=== PATIENT | female | born 1975 | race Caucasian/White ===

== ENCOUNTER 2023-09-28 16:15 | Inpatient (IN) | payer OTHER, SELFPAY ==
[2023-09-28] VITALS (24 sets, daily range): BP systolic 124–153; BP diastolic 75–97; PULSE 68–100; RESP 14–31; TEMP 36.4; O2SAT 88–100; BMI 19.3
--- NOTE | ~2023-09-28 | XR_ITS ---
XR chest 1V portable Ordering provider: Jc Thomas MD History: 47 years Female with . cough . Comparison: None. FINDINGS: MEDIASTINUM: The cardiac silhouette is not enlarged. LUNGS: No pneumothorax. Opacification the left lung base suggestive of atelectasis versus pneumonia w ith pleural effusion. OTHER: No free air under the diaphragm. Catheters and postoperative changes are seen in the upper abdomen IMPRESSION: Left basal pneumonia with pleural effusion. Follow-up to resolution is advised. Reviewed, dictated and finalized at location A.
--- NOTE | ~2023-09-28 | XR_ITS ---
XR chest 2V DATE: 09/30/2023 09:08 INDICATION: Pleural effusion TECHNIQUE: 2 views, PA and lateral projections COMPARISON: 09/28/2023 CT chest 09/28/2023 portable AP chest FINDINGS: There is a left lung atelectasis, with associated shift of the heart and mediastinum leftwa rd. There is probable left pleural effusion. There is compensatory hyperaeration of the right lung. The right lung appears clear. Minimal right pl eural effusion is suggested. Postoperative changes of the abdomen. Catheters noted overlying the right abdomen. IMPRESSION: Left lung volume loss, leftward cardiomediastinal shift, left lung infiltrate, pleural ef fusion Reviewed, dictated and finalized at location A. IMPRESSION: Left lung volume loss, leftward cardiomediastinal shift, left lung infiltrate, pleural effusion
--- NOTE | ~2023-09-28 | CT_ITS ---
CT diagnostic chest wo con Ordering provider: Jc Thomas MD History: 47 years Female with . left pleural effusion . Comparison: None. Technique: CT chest without IV contrast. Radiation reduction technique utilized. DLP is 120.22 mGy-cm. FINDINGS: VISUALIZED THORACIC INLET: Normal. MEDIASTINUM: Aorta/coronary arteries: Mild atheromatous disease. Heart/other: The heart is not enlarged. Rmfl-zi-eaqaetyb pericardial effusion. Lymph nodes: No mediastinal or hilar adenopathy. LUNGS: No pulmonary nodules or masses. Moderate left pleural effusion with adjacent atelectasis. Mini mal right pleural effusion. Atelectasis versus pneumonia seen in the left lingula. No pneumothorax. G roundglass appearance seen in the right middle and upper lobe suggestive of pneumonia..2. Possibilit y of nodule in the area of the left oblique fissure is not excluded. Follow-up to resolution is advis ed. Groundglass appearing nodule is seen in the right lower lobe medially which may be infectious but follow-up advised. VISUALIZED UPPER ABDOMEN: Right nephrostomy. Postoperative changes in the left renal area. Otherwise, the visualized upper abdomen is normal. MUSCULOSKELETAL: Soft tissues: The superficial soft tissues are normal. Bones: Age appropriate degenerative changes of the spine. Healing rib fracture is seen posteriorly in the left 6th , seventh and eighth rib IMPRESSION: 1. Large left pleural effusion with atelectasis versus pneumonia in the lingula. 2. Small right pleural effusion with groundglass appearance seen in the right upper and middle lobe which may indicate early pneumonia. Possibility of nodule in the area of the left oblique fissure is not excluded. Follow-up to resolution is advised. 3. Sglc-ik-atlvhqak pericardial effusion. 4. Healing fractures in the left hemithorax. 5. Small groundglass appearing nodule is seen in the right lower lobe medially which may be infectio us but follow-up advised. Reviewed, dictated and finalized at location A. IMPRESSION: 1. Large left pleural effusion with atelectasis versus pneumonia in the lingul a. 2. Small right pleural effusion with groundglass appearance seen in the right upper and middle lobe which may indicate early pneumonia. Possibility of nodule in the area of the left oblique fissure is not excluded. Follow-up to resoluti on is advised. 3. Etkl-ji-kviombzf pericardial effusion. 4. Healing fractures in the left hemithorax. 5. Small groundglass appearing nodule is seen in the right lower lobe medially which may be infectious but follow-up advised.
--- NOTE | 2023-09-28 16:54 | ECG_ITS ---
Test Date: 2023-09-28 17:28:09 Measurements Intervals [place] Rate: 93 P: 20 VT: 162 QRS: 8 QRSD: 82 T: 50 QT: 391 QTc: 488 Interpretive Statements SINUS RHYTHM LOW QRS VOLTAGE IN LIMB LEADS CANNOT R/O SEPTAL INFARCT, AGE INDETERMINATE CONSIDER INFERIOR INFARCT, AGE INDETERMINATE BORDERLINE ST ABNORMALITY- ANTEROLAT/HIGH LAT LEADS BASELINE ARTIFACT- V4 ABNORMAL ECG No previous ECG available for comparison Electronically Signed On 09-28-2023 20:17:49 CDT by Landon Miller D.O.
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
[2023-09-28 17:50] LABS: Influenza A QL RT-PCR Negative (Negative); Influenza B QL RT-PCR Negative (Negative); RSV RNA, RT-PCR Negative (Negative); SARS-CoV-2 RNA PCR Negative (Negative)
[2023-09-28 18:59] LABS: Basophils Absolute Auto 0.1 K/mm3 (0.0-0.1); Basophils Percent Auto 0.5 % (0.2-1.2); Eosinophils Absolute Auto 0.2 K/mm3 (0-0.3); Hematocrit 26.3 % (37.0-47.0); Hemoglobin 8.5 g/dL (12.0-15.0); Immature Granulocyte Absolute 0.04 K/mm3 (0.00-0.031); Immature Granulocyte Percent A 0.4 % (0-0.5); Lymphocytes Percent Auto 14.2 % (18.3-44.2); Mean Corpuscular HGB Conc 32.3 g/dl (32-36); Mean Corpuscular Hemoglobin 32.8 pg (26-34); Mean Corpuscular Volume 101.5 fl (80-100); Mean Platelet Volume 10.2 fl (7.4-10.4); Monocytes Absolute Auto 0.5 K/mm3 (0.1-0.6); Monocytes Percent Auto 4.7 % (2.6-8.5); Neutrophils Absolute Auto 7.7 K/mm3 (1.3-6.7); Neutrophils Percent Auto 78.2 % (45.5-73.1); Platelet Count Result 231 k/mm3 (150-375); Red Blood Count 2.59 M/mm3 (4.2-5.4); Red Cell Distribution Width 15.3 % (11.5-14.5); White Blood Count 9.9 K/mm3 (4.5-10.0)
[2023-09-28 19:14] LABS: Alanine Aminotransferase 7 U/L (6-35); Albumin Level 4.5 g/dL (3.5-5.1); Alkaline Phosphatase 120 U/L (38-126); Anion Gap 27 mmol/L (4-12); Aspartate Amino Transferase 9 U/L (14-36); Bilirubin,Total 0.6 mg/dL (0.2-1.3); Calcium 6.2 mg/dL (8.4-10.2); Carbon Dioxide 10 mmol/L (22-30); Chloride 102 mmol/L (98-107); Glucose 73 mg/dL (65-110); Magnesium 1.4 mg/dL (1.6-2.3); Potassium 6.6 mmol/L (3.4-5.0); Sodium 139 mmol/L (137-145)
[2023-09-28 19:19] LABS: Estimated CRCL calculation 3 ml/min; Estimated Glomerular Filt Rate 2
[2023-09-28 19:24] LABS: Blood Urea Nitrogen 129 mg/dL (7-17)
[2023-09-28] MEDS: ALBUTEROL SULFATE NEB 2.5 MG/3 ML INH INHALATION (19:30)
--- NOTE | 2023-09-28 19:31 | PC.NURSE ---
amy martin for 2mg morphine x 1 dose.
[2023-09-28] MEDS: DEXTROSE 50% 25 GM/50 ML SYRINGE IV PUSH (19:43)
[2023-09-28] MEDS: MORPHINE SULFATE (*CRX) 2 MG/ML INJ IV PUSH (19:43)
[2023-09-28] MEDS: SODIUM BICARBONATE 8.4% 50 MEQ/50 ML SYRINGE IV PUSH (19:43)
[2023-09-28] MEDS: INSULIN HUMAN REGULAR (*BKC) 100 UNITS/ML IV PUSH (19:44)
[2023-09-28 20:16] LABS: Appearance Urine Turbid (Clear); Bacteria Urine 2+ /hpf; Bilirubin Urine Negative (Negative); Blood Urine 1+ (Negative); Color Urine Yellow (Yellow); Glucose Urine UA Trace mg/dL (Negative); Ketones Urine Negative (Negative); Leukocyte Esterase Ur 3+ LEU/UL (Negative); Nitrate Urine Negative (Negative); Protein Urine 3+ mg/dL (Negative); Specific Grav Ur 1.011 (1.001-1.035); Squamous Epithelial Cell Urine Many /hpf (Few); Urobilinogen Urine 0.2 mg/dL (<2.0); WBC Urine >100 /hpf (0-3); pH Urine 7.5 (5.0-9.0)
[2023-09-28 20:19] LABS: Add Urine Microscopic? YES
--- NOTE | 2023-09-28 20:21 | PC.NURSE ---
amanuel significant other updated.
[2023-09-28] MEDS: SODIUM ZIRCONIUM CYCLOSILICATE 10 GM POWD.PACK PO (21:34)
--- NOTE | 2023-09-28 22:04 | ADMGEN ---
This patient, Lorena Balderas, was admitted to 3 [facility] Surg Room 301-01. Patient/family oriented to hospital policies and general routines including ID bracelet, bed and alarms, visiting hours, pain management, procedures, bathroom and other care routines, personal items, smoking policy, room service/diet, and visiting hours. Information on how to activate the Rapid Response Team has been discussed. Patient/Family are encouraged to report perceived risks to care and to ask questions if they do not understand what they are told or what they should do.
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
[2023-09-29] VITALS (26 sets, daily range): BP systolic 97–160; BP diastolic 47–91; PULSE 74–110; RESP 14–18; TEMP 36.1–37.6; O2SAT 92–97
[2023-09-29 00:50] LABS: Anion Gap 26 mmol/L (4-12); Blood Urea Nitrogen 133 mg/dL (7-17); Calcium 5.7 mg/dL (8.4-10.2); Carbon Dioxide 13 mmol/L (22-30); Chloride 101 mmol/L (98-107); Estimated CRCL calculation 3 ml/min; Estimated Glomerular Filt Rate 2; Glucose 100 mg/dL (65-110); Potassium 5.2 mmol/L (3.4-5.0); Sodium 140 mmol/L (137-145)
[2023-09-29 01:15] LABS: Hepatitis B Surface Antigen Negative (Negative)
[2023-09-29 01:32] LABS: Hepatitis B Surface Anti Res Negative
[2023-09-29] MEDS: MORPHINE SULFATE (*CRX) 2 MG/ML INJ IV PUSH ×2 (01:33→09:12)
[2023-09-29] MEDS: CALCIUM GLUCONATE 1,000 MG/10 ML VIAL 1000 MG IV PUSH (01:33)
[2023-09-29] MEDS: HYDROcodone/acetaminophen (*CRX) 5-325 MG TABLET 1 TAB PO ×3 (05:26→20:02)
[2023-09-29] MEDS: NICOTINE (*PBKC) 14 MG PATCH 1 PATCH TRANSDERM (05:27)
--- NOTE | 2023-09-29 05:43 | PCRCNOTE ---
Window of time for administration has passed. See next scheduled administration.
[2023-09-29 07:09] LABS: Hematocrit 23.1 % (37.0-47.0); Hemoglobin 7.5 g/dL (12.0-15.0); Mean Corpuscular HGB Conc 32.5 g/dl (32-36); Mean Corpuscular Volume 101.8 fl (80-100); Platelet Count Result 202 k/mm3 (150-375); Red Blood Count 2.27 M/mm3 (4.2-5.4); Red Cell Distribution Width 15.2 % (11.5-14.5); White Blood Count 8.1 K/mm3 (4.5-10.0)
[2023-09-29 07:22] LABS: INR 1.2
[2023-09-29 07:32] LABS: Amylase 109 U/L (30-110); Cholesterol 143 mg/dL (0-200); Triglycerides 114 mg/dL (<150)
[2023-09-29 07:35] LABS: Albumin Level 4.1 g/dL (3.5-5.1); Anion Gap 25 mmol/L (4-12); Calcium 6.3 mg/dL (8.4-10.2); Carbon Dioxide 13 mmol/L (22-30); Chloride 99 mmol/L (98-107); Glucose 70 mg/dL (65-110); Phosphorus 12.6 mg/dL (2.5-4.5); Potassium 5.8 mmol/L (3.4-5.0); Sodium 137 mmol/L (137-145)
[2023-09-29 07:42] LABS: Estimated CRCL calculation 3 ml/min; Estimated Glomerular Filt Rate 2
[2023-09-29 07:44] LABS: Lactate Dehydrogenase 198 U/L (120-246)
[2023-09-29 08:23] LABS: Blood Urea Nitrogen 131 mg/dL (7-17)
[2023-09-29] MEDS: ALBUTEROL SULFATE NEB 2.5 MG/3 ML INH 5 MG INHALATION (08:23)
[2023-09-29] MEDS: IPRATROPIUM BR 0.02% INH SOLN 0.5 MG/2.5 ML VIAL INHALATION (08:24)
[2023-09-29] MEDS: CALCIUM ACETATE 667 MG TABLET PO ×3 (08:35→16:40)
[2023-09-29] MEDS: HEPARIN SODIUM 5,000 UNITS/ML VIAL 5000 UNITS SUB-Q ×2 (08:35→20:02)
[2023-09-29] MEDS: SODIUM BICARBONATE TAB 650 MG TABLET PO ×2 (08:35→16:40)
--- NOTE | 2023-09-29 09:22 | PM.IMPN ---
Progress Note: A&P Assessment and Plan (1) Noncompliance with renal dialysis: Code(s): Z91.158 - Patient's noncompliance with renal dialysis for other reason Status: Acute Assessment and Plan: Patient has not been to dialysis since September 11 due to transportation issues. She is usually seen Sunday -she has significant electrolyte abnormalities on BMP today -discussed case with Nephrology and we are recommending urgent dialysis this morning and patient is agreeable to go and about [address] Berger has placed verbal orders which includes a calcium bath -she is given 1 g of calcium gluconate early this morning due to a calcium of 5.7 which did improve it a bit -patient still has a low calcium at 6.3-- calcium bath will be added to dialysis per Dr. Berger -continue telemetry -discussed extensively with the patient how important dialysis is. She seems to be agreeable now that she has had her coffee. -anion gap likely due to uremia -on bicarb and phoslo -will give 1g of mag after dialysis (2) Acute hyperkalemia: Code(s): E87.5 - Hyperkalemia Status: Acute Assessment and Plan: Improved from yesterday but still high -pt to undergo dialysis this morning -on [facility] -continue tele (3) Cigarette smoker: Code(s): F17.210 - Nicotine dependence, cigarettes, uncomplicated Status: Acute Assessment and Plan: nicotine patch ordered daily (4) Pleural effusion: Code(s): J90 - Pleural effusion, not elsewhere classified Status: Acute Assessment and Plan: Noted on xray -pt has no symptoms or complaints of cough -Will do dialysis and recheck xray -pt not requring o2, no conversational dyspnea -hold off on thoracentesis as pt was going to leave AMA if we were going to do this (due to needing to be NPO). Will revisit if she continues to have an abnormal xray after dialysis -holding off on abx at this time as fluid overload is suspected to be the major issue. Monitor for leukocytosis and fevers (5) Asthma with COPD with exacerbation: Code(s): J44.1 - Chronic obstructive pulmonary disease with (acute) exacerbation; J45.901 - Unspecified asthma with (acute) exacerbation Status: Acute Assessment and Plan: Minimal wheezing on exam -continue breathing treatments PRN (6) Abnormal urinalysis: Code(s): R82.90 - Unspecified abnormal findings in urine Status: Acute Assessment and Plan: Abnormal UA from nephrostomy tube (has many squames) -unable to determine when this was placed but she has not had it changed since it was placed -awaiting records from OSH for details -no abx started (no fever or WBC), await cx and records (7) Anemia: Code(s): D64.9 - Anemia, unspecified Status: Acute Assessment and Plan: chronic and stable -likely due to ACD, on dialysis -no notable blood loss on hx of exam -monitor with daily labs Time Spent With Patient Time with patient: 25 - 35 minutes Subjective Date/time seen: 09/29/23 09:22 Interval history: Pt is a 47-year-old female here for missed dialysis. Patient was seen today and was very disgruntled. She was placed NPO overnight and she was refusing dialysis until she got a cup of coffee and some crackers. I went up to her room and explained why she was NPO but after listening to her concerns, I thought it was more beneficial for her to get her coffee so she would be agreeable to dialysis. She does not answer many questions on exam as she is very irritated and keeps saying I already told people this and I am over this I am going to leave . I explained to her that her lab values are significantly abnormal and that I am worried about poor outcomes such as coma and and she says she is tired of people telling her she is going to if she does not do dialysis because she knows her own body and she does not feel like she needs i
[2023-09-29] MEDS: EPOETIN ALFA-EPBX 20,000 UNITS/ML VIAL 20000 UNITS IV PUSH (10:19)
[2023-09-29] MEDS: DIPHENHYDRAMINE 1%/ZINC 0.1% CREAM 30 GM TUBE 1 APPLIC TOPICAL (10:46)
[2023-09-29] MEDS: SODIUM ZIRCONIUM CYCLOSILICATE 10 GM POWD.PACK PO ×2 (10:46→15:21)
[2023-09-29] MEDS: diphenhydrAMINE HCl CAP 25 MG CAPSULE PO (12:10)
--- NOTE | 2023-09-29 14:00 | PM.CNNEP ---
Assessment and Plan Assessment and plan (1) End stage kidney disease: Code(s): N18.6 - End stage renal disease Status: Acute Assessment and Plan: The patient has end-stage kidney disease. She gets dialysis 3 times a week. She has a left upper arm fistula. Reason for the end-stage renal disease is most likely obstructive. Patient missed 2 weeks of dialysis. Amazingly her fluid status and electrolytes are not as bad as they could be. She says she still makes some urine which is probably why she was able to stay off for so long. Currently she does have signs of fluid overload and electrolyte abnormalities. I reviewed with her the importance of continuing to go to dialysis 3 times a week. Missing dialysis leads to hospitalization and also mortality. (2) Acute hyperkalemia: Code(s): E87.5 - Hyperkalemia Status: Acute Assessment and Plan: The patient's potassium was high. She was treated with oral and IV medications last night. She will be done on a 2 K bath today. We will check another potassium tomorrow per (3) Noncompliance with renal dialysis: Code(s): Z91.158 - Patient's noncompliance with renal dialysis for other reason Status: Acute Assessment and Plan: Reviewed with the patient the dangers of skipping treatments (4) Cigarette smoker: Code(s): F17.210 - Nicotine dependence, cigarettes, uncomplicated Status: Acute Assessment and Plan: Patient has been advised to quit (5) Pleural effusion: Code(s): J90 - Pleural effusion, not elsewhere classified Status: Acute Assessment and Plan: The patient has a large left pleural effusion and small right pleural effusion. The patient refused thoracentesis. Notably the patient also has some grob-es-xzsqxhwt pericardial effusion, but both related to serositis from missing her dialysis treatments. Will order an echo for Sunday. (6) Asthma with COPD with exacerbation: Code(s): J44.1 - Chronic obstructive pulmonary disease with (acute) exacerbation; J45.901 - Unspecified asthma with (acute) exacerbation Status: Acute Assessment and Plan: Patient has some wheezing. She continues to smoke. (7) Abnormal urinalysis: Code(s): R82.90 - Unspecified abnormal findings in urine Status: Acute Assessment and Plan: The patient has white cells in her urine but it is from a urostomy which can be chronic. She has no fevers and her white count is okay. I do not think we need to treat this. (8) Anemia: Code(s): D64.9 - Anemia, unspecified Status: Acute Assessment and Plan: She is getting Epogen. She obviously has not had any MANUEL's in the last 2 weeks. Will check iron studies as well History of Present Illness Reason for Consult Consult date: 09/29/23 Chief Complaint Chief complaint: Abnormal UA/End Stage Renal Disease/Dialysis Nonco History of Present Illness Narrative: Lorena is a very pleasant 47-year-old lady who has multiple medical problems including end-stage renal disease on dialysis 3 times a week, asthma, cigarette smoker, history of kidney stones, pleural effusion, and small bowel obstruction in the past. The patient says that she started dialysis about 3 years ago. She has been going to [facility]. She thinks that the kidney disease is due to the kidney stones and blockage. She still makes some urine. Two weeks ago the patient stopped going to dialysis completely. At 1st she said it was transportation then she had problems with who could babysit her grand kids but she basically stayed at home for the whole 2 weeks. She did swell up a little bit and she became short of breath as 2 weeks went on. Yesterday she became worried about missing dialysis so she came to the emergency room. In the ER she was evaluated. She was found to be mildly short of breath and her numbers were reflective her her of her having missed some much dial
--- NOTE | 2023-09-29 14:05 | P.PNCROSS_ITS ---
Event Note Event Note Event Note: Patient is on dialysis. She is tolerating it well. Blood pressure is doing pr carola well having removed some fluid. She was seen at 1:15 p.m.
--- NOTE | 2023-09-29 14:05 | PM.EVENT ---
Event Note Event Note Event Note: Patient is on dialysis. She is tolerating it well. Blood pressure is doing pretty well having removed some fluid. She was seen at 1:15 p.m.
[2023-09-29] MEDS: MAGNESIUM SULF 1 GM/D5W 100 ML 1 GM/100 ML BAG IVPB (15:16)
[2023-09-29 15:36] LABS: Iron 79 ug/dL (37-170)
[2023-09-29 15:38] LABS: Anion Gap 16 mmol/L (4-12); Blood Urea Nitrogen 28 mg/dL (7-17); Calcium 9.1 mg/dL (8.4-10.2); Carbon Dioxide 31 mmol/L (22-30); Chloride 95 mmol/L (98-107); Estimated CRCL calculation 9 ml/min; Estimated Glomerular Filt Rate 9; Glucose 83 mg/dL (65-110); Potassium 3.2 mmol/L (3.4-5.0); Sodium 142 mmol/L (137-145)
[2023-09-29 15:46] LABS: Percent Iron Saturation 39 % (20-50)
[2023-09-30] VITALS (9 sets, daily range): BP systolic 125–136; BP diastolic 66–75; PULSE 88–101; RESP 14–20; TEMP 36.4–36.9; O2SAT 90–93
[2023-09-30 07:30] LABS: Hemoglobin 7.6 g/dL (12.0-15.0); Mean Corpuscular HGB Conc 31.7 g/dl (32-36); Mean Corpuscular Hemoglobin 32.5 pg (26-34); Mean Corpuscular Volume 102.6 fl (80-100); Platelet Count Result 186 k/mm3 (150-375); Red Blood Count 2.34 M/mm3 (4.2-5.4); Red Cell Distribution Width 15.2 % (11.5-14.5); White Blood Count 6.3 K/mm3 (4.5-10.0)
[2023-09-30 07:51] LABS: Albumin Level 3.8 g/dL (3.5-5.1); Anion Gap 15 mmol/L (4-12); Blood Urea Nitrogen 38 mg/dL (7-17); Calcium 7.7 mg/dL (8.4-10.2); Carbon Dioxide 29 mmol/L (22-30); Chloride 96 mmol/L (98-107); Estimated CRCL calculation 7 ml/min; Estimated Glomerular Filt Rate 6; Glucose 84 mg/dL (65-110); Phosphorus 7.5 mg/dL (2.5-4.5); Potassium 3.7 mmol/L (3.4-5.0); Sodium 140 mmol/L (137-145)
[2023-09-30] MEDS: CALCIUM ACETATE 667 MG TABLET PO ×3 (08:23→16:09)
[2023-09-30] MEDS: NICOTINE (*PBKC) 14 MG PATCH 1 PATCH TRANSDERM (08:23)
[2023-09-30] MEDS: HEPARIN SODIUM 5,000 UNITS/ML VIAL 5000 UNITS SUB-Q ×2 (08:23→20:16)
[2023-09-30] MEDS: SODIUM BICARBONATE TAB 650 MG TABLET PO ×2 (08:23→16:09)
[2023-09-30] MEDS: HYDROcodone/acetaminophen (*CRX) 5-325 MG TABLET 1 TAB PO ×3 (08:27→22:31)
--- NOTE | 2023-09-30 10:21 | PM.CNNEP ---
History of Present Illness Reason for Consult Consult date: 09/30/23 Chief Complaint Chief complaint: Abnormal UA/End Stage Renal Disease/Dialysis Nonco PMFSH Past Medical History Medical History Asthma Cigarette smoker End-stage renal disease on hemodialysis On hemodialysis since approximately 2020. Patient reports end-stage renal disease due to wear shoe kidney staghorn calculus. [place] Sunday. Sm[place] is Dr. Rangel History of nephrolithiasis Pleural effusion Recurrent Small bowel obstruction Surgical History Surgical History History of intestinal surgery (~2021) Due to bowel obstruction History of tubal ligation Hx of cholecystectomy Status post creation of arteriovenous fistula (~2020) Family History Family History Father , early 70's Cancer Mother Hypertension Hyperlipidemia Social History Social History Social History: Patient reports that she lives with her long-term boyfriend. She has 2 daughters who are in her 20s but she is not in contact with them. She worked in [employer] prior to onset of her renal disease. She has smoked half a pack of cigarettes per day since she was 15 years old. She denies any history of alcohol or drug use. Code status: Full code Surrogate decision maker: Edenilson Thomas (significant other) Smoking packs per day: 0.5 Smoking cigarettes per day: 10.0 Years smoked: 32 Smoking pack-years: 16.00 Smoking status: Current every day smoker Tobacco type: cigarettes Alcohol intake: never Substance use: never Do You Feel Safe in your Home?: Yes Lack of Transportation: No Lack of Food: Never True Current Housing: I Have Housing Concerned About Future Housing: No Difficulty Paying Gas/Electric Bills: No Difficulty Paying for Meds: No Currently Unemployed: No Education: High School Diploma/GED Difficulty w/ Childcare or Family Care: No Spiritual care concerns: No Meds Home Medications and Allergies Home Medications Medication Instructions Recorded Confirmed Type lanthanum 750 mg chewable tablet 1,500 mg PO TID 09/28/23 09/28/23 History Allergies Allergy/AdvReac Type Severity Reaction Status Date / Time aspirin Allergy Swelling Verified 09/29/23 01:01 of Lip/Tongue/Throat ceftriaxone [From Rocephin] Allergy Swelling Verified 09/29/23 01:01 of Lip/Tongue/Throat Vital Signs Vital Signs - 24 hr 09/29/23 12:00 09/29/23 10:30 09/29/23 10:45 Temperature Pulse Rate 82 91 89 Respiratory Rate Blood Pressure 126/59 L 129/80 Pulse Oximetry 09/29/23 11:00 09/29/23 11:15 09/29/23 11:30 Temperature Pulse Rate 96 94 89 Respiratory Rate Blood Pressure 116/81 105/60 115/60 Pulse Oximetry 09/29/23 11:45 09/29/23 12:00 09/29/23 12:15 Temperature Pulse Rate 74 84 79 Respiratory Rate Blood Pressure 125/57 L 104/47 L 99/58 L Pulse Oximetry 09/29/23 12:30 09/29/23 12:45 09/29/23 13:00 Temperature Pulse Rate 97 81 78 Respiratory Rate Blood Pressure 97/64 L 113/58 L 114/61 Pulse Oximetry 09/29/23 13:15 09/29/23 13:30 09/29/23 13:38 Temperature Pulse Rate 79 93 93 Respiratory Rate Blood Pressure 132/56 L 125/61 122/70 Pulse Oximetry 09/29/23 13:48 09/29/23 16:00 09/29/23 21:10 Temperature 98.1 F 97.4 F L Pulse Rate 98 110 H 99 Respiratory Rate 18 14 Blood Pressure 145/77 H 119/83 Pulse Oximetry 92 09/29/23 20:00 09/30/23 05:00 09/30/23 00:00 Temperature 97.6 F Pulse Rate 102 H 99 94 Respiratory Rate 14 Blood Pressure 132/75 Pulse Oximetry 92 09/30/23 04:00 Temperature Pulse Rate 100 Respiratory Rate Blood Pressure Pulse Oximetry Results Lab
--- NOTE | 2023-09-30 10:22 | PM.PNNEP ---
Progress Note: A&P Assessment and Plan (1) End stage kidney disease: Code(s): N18.6 - End stage renal disease Status: Acute Assessment and Plan: The patient has end-stage kidney disease. She gets dialysis 3 times a week. She has a left upper arm fistula. Reason for the end-stage renal disease is most likely obstructive. Patient missed 2 weeks of dialysis. She received dialysis yesterday and did well. Today she feels okay. She has a pericardial effusion so will see what the echo shows tomorrow. (2) Acute hyperkalemia: Code(s): E87.5 - Hyperkalemia Status: Acute Assessment and Plan: Resolved (3) Noncompliance with renal dialysis: Code(s): Z91.158 - Patient's noncompliance with renal dialysis for other reason Status: Acute Assessment and Plan: Reviewed with the patient the dangers of skipping treatments (4) Cigarette smoker: Code(s): F17.210 - Nicotine dependence, cigarettes, uncomplicated Status: Acute Assessment and Plan: Patient has been advised to quit (5) Pleural effusion: Code(s): J90 - Pleural effusion, not elsewhere classified Status: Acute Assessment and Plan: most likely due to lack of dialysis causing serositis. (6) Asthma with COPD with exacerbation: Code(s): J44.1 - Chronic obstructive pulmonary disease with (acute) exacerbation; J45.901 - Unspecified asthma with (acute) exacerbation Status: Acute Assessment and Plan: Patient has some wheezing. She continues to smoke. (7) Abnormal urinalysis: Code(s): R82.90 - Unspecified abnormal findings in urine Status: Acute Assessment and Plan: The patient has white cells in her urine but it is from a urostomy which can be chronic. She has no fevers and her white count is okay. I do not think we need to treat this. (8) Anemia: Code(s): D64.9 - Anemia, unspecified Status: Acute Assessment and Plan: She is getting Epogen. Subjective Date/time seen: 09/30/23 10:22 Interval history: Patient feels better this morning. The rest of the dialysis went okay yesterday. No shortness of breath today. Review of Systems Cardiovascular: Cardiovascular: Reports no additional cardiovascular complaints Respiratory: Respiratory: Reports no additional respiratory complaints Gastrointestinal: Gastrointestinal: Reports no additional gastrointestinal complaints Genitourinary: Genitourinary: Reports no additional female genitourinary complaints Exam Narrative: WDWN in NAD skin no rash head ncat lungs clear cor reg no rub abd BS+ nontender and soft ext no edema. Objective Data Vital Signs Vital Signs: Vital Signs - 24 hr 09/29/23 12:00 09/29/23 10:30 09/29/23 10:45 Temperature Pulse Rate 82 91 89 Respiratory Rate Blood Pressure 126/59 L 129/80 Pulse Oximetry 09/29/23 11:00 09/29/23 11:15 09/29/23 11:30 Temperature Pulse Rate 96 94 89 Respiratory Rate Blood Pressure 116/81 105/60 115/60 Pulse Oximetry 09/29/23 11:45 09/29/23 12:00 09/29/23 12:15 Temperature Pulse Rate 74 84 79 Respiratory Rate Blood Pressure 125/57 L 104/47 L 99/58 L Pulse Oximetry 09/29/23 12:30 09/29/23 12:45 09/29/23 13:00 Temperature Pulse Rate 97 81 78 Respiratory Rate Blood Pressure 97/64 L 113/58 L 114/61 Pulse Oximetry 09/29/23 13:15 09/29/23 13:30 09/29/23 13:38 Temperature Pulse Rate 79 93 93 Respiratory Rate Blood Pressure 132/56 L 125/61 122/70 Pulse Oximetry 09/29/23 13:48 09/29/23 16:00 09/29/23 21:10 Temperature 98.1 F 97.4 F L Pulse Rate 98 110 H 99 Respiratory Rate 18 14 Blood Pressure 145/77 H 119/83 Pulse Oximetry 92 09/29/23 20:00 09/30/23 05:00 09/30/23 00:00 Temperature 97.6 F Pulse Rate 102 H 99 94 Respiratory Rate 14 Blood Pressure 132/75 Pulse Oximetry 92 09/30/23
--- NOTE | 2023-09-30 11:02 | PM.IMPN ---
Progress Note: A&P Assessment and Plan (1) Noncompliance with renal dialysis: Code(s): Z91.158 - Patient's noncompliance with renal dialysis for other reason Status: Acute Assessment and Plan: Patient has not been to dialysis since September 11 due to transportation issues. She is usually seen Sunday -significant electrolyte abnormalities on admission -Nephrology nephrology following and received dialysis yesterday -calcium improving but still low at 7.7 today, she is on calcium acetate 3 times a day with meals and will continue to monitor -continue telemetry -discussed extensively with the patient how important dialysis is -anion gap likely due to uremia -bicarb and phoslo -continue to monitor BMP (2) Acute hyperkalemia: Code(s): E87.5 - Hyperkalemia Status: Resolved Assessment and Plan: Resolved from yesterday and Lokelma discontinued (3) Cigarette smoker: Code(s): F17.210 - Nicotine dependence, cigarettes, uncomplicated Status: Chronic Assessment and Plan: nicotine patch ordered daily (4) Pleural effusion: Code(s): J90 - Pleural effusion, not elsewhere classified Status: Acute Assessment and Plan: Noted on xray -pt has no symptoms or complaints of cough -repeat x-ray shows continued left pleural effusion -pt not requring o2, no conversational dyspnea -consider thoracentesis if becomes symptomatic -holding off on abx at this time as fluid overload is suspected to be the major issue. -Monitor for leukocytosis and fevers (5) Asthma with COPD with exacerbation: Code(s): J44.1 - Chronic obstructive pulmonary disease with (acute) exacerbation; J45.901 - Unspecified asthma with (acute) exacerbation Status: Chronic Assessment and Plan: Minimal wheezing on exam -continue breathing treatments PRN (6) Abnormal urinalysis: Code(s): R82.90 - Unspecified abnormal findings in urine Status: Acute Assessment and Plan: Abnormal UA from nephrostomy tube (has many squames) -unable to determine when this was placed but she has not had it changed since it was placed; will attempt to replace today if we can find appropriate bag -awaiting records from OSH for details -urine culture pending (7) Anemia: Code(s): D64.9 - Anemia, unspecified Status: Chronic Assessment and Plan: chronic and stable -likely due to ACD, on dialysis -no notable blood loss on hx of exam -monitor with daily labs -received Epo with dialysis Subjective Date/time seen: 09/30/23 11:02 Interval history: Patient lying in bed this morning in no distress. She denies any chest pain, SOB, or pain. Her only concern is the neph tube in place on her right side. She believes it is malodorous. She reports it was last changed in [place] when she was visiting family, but she is not the best historian on time frame. Repeat CXR today still shows some left pleural effusion. Nephrology is following for dialysis needs. Review of Systems Review of Systems: All systems reviewed & are unremarkable except as noted in HPI and below Exam Narrative: General: Patient appears older than stated age resting comfortably in bed in no acute distress HEENT: normocephalic, PERRLA, EOMI Neuro: A&O x3. Moves all extremities spontaneously. No focal deficits. CV:RRR. Resp: Lungs clear to auscultation, crackles noted bilaterally in lower lobes. No conversational dyspnea Abd: BS present and active. No pain on plapation. Neph tube in place on right side, no local signs of infection. Extremities: No edema PSYCH: mood and affect appropriate on exam this morning Objective Data Vital Signs Vital Signs: Vital Signs - 24 hr 09/29/23 12:00 09/29/23 11:15 09/29/23 11:30 Temperature Pulse Rate 82 94 89 Respiratory Rate Blood Pressure 105/60 115/60 Pulse Oximetry 09/29/23 11:45 09/29/23 12:0
--- NOTE | 2023-09-30 22:46 | PC.NURSE ---
Pt refusing to sign consent at this time, will discuss with day RN about refusal.
[2023-10-01] VITALS (29 sets, daily range): BP systolic 97–140; BP diastolic 55–83; PULSE 75–113; RESP 14–20; TEMP 36.5–37.3; O2SAT 85–100
[2023-10-01] MEDS: IPRATROPIUM 0.5 MG/ALBUTEROL SULFATE 2.5 MG AMPUL.NEB 3 ML INHALATION (02:13)
[2023-10-01] MEDS: HYDROcodone/acetaminophen (*CRX) 5-325 MG TABLET 1 TAB PO ×2 (05:19→11:24)
[2023-10-01 06:53] LABS: Albumin Level 3.6 g/dL (3.5-5.1); Anion Gap 15 mmol/L (4-12); Blood Urea Nitrogen 45 mg/dL (7-17); Calcium 7.9 mg/dL (8.4-10.2); Carbon Dioxide 28 mmol/L (22-30); Chloride 92 mmol/L (98-107); Estimated CRCL calculation 6 ml/min; Estimated Glomerular Filt Rate 5; Glucose 76 mg/dL (65-110); Phosphorus 8.6 mg/dL (2.5-4.5); Sodium 135 mmol/L (137-145)
[2023-10-01 07:20] LABS: Lactate Dehydrogenase 165 U/L (120-246)
[2023-10-01 07:23] LABS: Alanine Aminotransferase 9 U/L (6-35); Albumin Level 3.5 g/dL (3.5-5.1); Alkaline Phosphatase 118 U/L (38-126); Anion Gap 15 mmol/L (4-12); Aspartate Amino Transferase 13 U/L (14-36); Bilirubin,Total 0.4 mg/dL (0.2-1.3); Blood Urea Nitrogen 44 mg/dL (7-17); Calcium 7.9 mg/dL (8.4-10.2); Carbon Dioxide 28 mmol/L (22-30); Chloride 92 mmol/L (98-107); Cholesterol 115 mg/dL (0-200); Estimated CRCL calculation 6 ml/min; Estimated Glomerular Filt Rate 5; Glucose 76 mg/dL (65-110); Sodium 135 mmol/L (137-145)
[2023-10-01] MEDS: ALBUMIN HUMAN 25% 12.5 GM/50ML 50 ML IVPB (10:58)
[2023-10-01] MEDS: EPOETIN ALFA-EPBX 10,000 UNITS/ML VIAL 10000 UNITS IV PUSH (11:17)
--- NOTE | 2023-10-01 12:16 | PM.PNNEP ---
Progress Note: A&P Assessment and Plan (1) End stage kidney disease: Code(s): N18.6 - End stage renal disease Status: Acute Assessment and Plan: The patient has end-stage kidney disease. She gets dialysis 3 times a week. She has a left upper arm fistula. Reason for the end-stage renal disease is most likely obstructive. will do HD today, tomorrow, and sunday and then can go home. She has a pericardial effusion so will see what the echo shows today (2) Acute hyperkalemia: Code(s): E87.5 - Hyperkalemia Status: Resolved Assessment and Plan: Resolved (3) Noncompliance with renal dialysis: Code(s): Z91.158 - Patient's noncompliance with renal dialysis for other reason Status: Acute Assessment and Plan: Reviewed with the patient the dangers of skipping treatments. she understands that the fluid around the heart and lungs is because of missed treatments. (4) Cigarette smoker: Code(s): F17.210 - Nicotine dependence, cigarettes, uncomplicated Status: Chronic Assessment and Plan: Patient has been advised to quit (5) Pleural effusion: Code(s): J90 - Pleural effusion, not elsewhere classified Status: Acute Assessment and Plan: most likely due to lack of dialysis causing serositis. (6) Asthma with COPD with exacerbation: Code(s): J44.1 - Chronic obstructive pulmonary disease with (acute) exacerbation; J45.901 - Unspecified asthma with (acute) exacerbation Status: Chronic Assessment and Plan: Patient has some wheezing. She continues to smoke. encouraged to quit (7) Abnormal urinalysis: Code(s): R82.90 - Unspecified abnormal findings in urine Status: Acute Assessment and Plan: The patient has white cells in her urine but it is from a urostomy which can be chronic. She has no fevers and her white count is okay. I do not think we need to treat this. (8) Anemia: Code(s): D64.9 - Anemia, unspecified Status: Chronic Assessment and Plan: She is getting Epogen. Subjective Date/time seen: 10/01/23 12:16 Interval history: Pt feelsokay no cp or sob on HD elizabeth it well. removing fluid. bp a bit low so will give albumin. seen at 10:20am Exam Narrative: WDWN in NAD skin no rash head ncat lungs clear bilaterally cor reg no rub abd BS+ nontender and soft ext no edema. Objective Data Vital Signs Vital Signs: Vital Signs - 24 hr 09/30/23 13:36 09/30/23 16:00 09/30/23 21:08 Temperature 97.6 F 98.4 F Pulse Rate 95 96 94 Respiratory Rate 19 20 Blood Pressure 125/66 136/72 Pulse Oximetry 90 93 Oxygen Delivery Oxygen Flow Rate Fraction of Inspired Oxygen 10/01/23 00:05 10/01/23 00:09 09/30/23 20:00 Temperature Pulse Rate 88 Respiratory Rate Blood Pressure Pulse Oximetry 85 L 98 Oxygen Delivery Room Air Nasal Cannula Oxygen Flow Rate 2 Fraction of Inspired Oxygen 10/01/23 00:00 10/01/23 02:13 10/01/23 02:22 Temperature Pulse Rate 91 76 75 Respiratory Rate 18 18 Blood Pressure Pulse Oximetry Oxygen Delivery Oxygen Flow Rate Fraction of Inspired Oxygen 10/01/23 04:00 10/01/23 04:26 10/01/23 05:44 Temperature 98.2 F Pulse Rate 82 81 Respiratory Rate 14 Blood Pressure 113/67 Pulse Oximetry 98 95 Oxygen Delivery Nasal Cannula Oxygen Flow Rate 1 Fraction of Inspired Oxygen 10/01/23 07:42 10/01/23 08:00 10/01/23 09:53 Temperature Pulse Rate 88 81 Respiratory Rate 20 Blood Pressure Pulse Oximetry 95 Oxygen Delivery Nasal Cannula Oxygen Flow Rate 1 2 Fraction of Inspired Oxygen 24 0 10/01/23 09:53 Temperature 97.7 F Pulse Rate 86 Respiratory Rate 18 Blood Pressure 123/81 Pulse Oximetry 98 Oxygen Delivery Oxygen Flow Rate Fraction of Inspired Oxygen Intake/Output Intake/Output: Intake & Output 09/28/23
--- NOTE | 2023-10-01 13:27 | WPDURCON ---
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 She is established with Urology in [place], [place] though has been noncompliant with nephrostomy tube changes. She states last exchange was 05/2023. As nephrostomy tube is draining at this time, will defer any further management at this facility but she will need prompt follow up with her established IR team and urologist in [place] for ongoing nephrostomy management upon discharge. Discussed importance of compliance with nephrostomy tube management and appropriate follow up with patient. 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 The patient is a poor historian and not able to provide any reliable history. She is established with a urologist at [facility] in [place], [place]. The last records I am able to find are from a nephrostomy tube exchange in 06/2022 at [facility]. The patient reports that the [place] [facility] [place] family [place]. She reported that on arrival, her nephrostomy bag was malodorous but the bag was changed and she reports this has resolved. She states it is draining well. She has no additional concerns. She had multiple severe electrolyte derangements on arrival as she had missed dialysis for several weeks in a row, though this has mostly improved. [facility] Past Medical History Medical History Asthma Cigarette smoker End-stage renal disease on hemodialysis On hemodialysis since approximately 2020. Patient reports end-stage renal disease due to wear shoe kidney staghorn calculus. [facility]'s Sunday. Super[employer]ising [employer] is Dr. Rangel History of nephrolithiasis Pleural effusion Recurrent Small bowel obstruction Surgical History Surgical History History of intestinal surgery (~2021) Due to bowel obstruction History of tubal ligation Hx of cholecystectomy Status post creation of arteriovenous fistula (~2020) Family History Family History Father , early 70's Cancer Mother Hypertension Hyperlipidemia Social History Social History Social History: Patient reports that she lives with her long-term boyfriend. She has 2 daughters who are in her 20s but she is not in contact with them. She worked in [employer] prior to onset of her renal disease. She has smoked half a pack of cigarettes per day since she was 15 years old. She denies any history of alcohol or drug use. Code status: Full code Surrogate decision maker: Edenilson Thomas (significant other) Smoking packs per day: 0.5 Smoking cigarettes per day: 10.0 Years smoked: 32 Smoking pack-years: 16.00 Smoking status: Current every day smoker Tobacco type: cigarettes Alcohol intake: never Substance use: never Do You Feel Safe in your Home?: Yes Lack of Transportation: No [place]
--- NOTE | 2023-10-01 14:11 | ECHO_ITS ---
Patient Info Name: Lorena Balderas Age: 47 years : 1975 Gender: Female Ht: 60 in Wt: 110 lbs BSA: 1.46 m2 HR: 81 bpm BP: 113 / 67 mmHg Heart Rhythm: Sinus Rhythm Technical Quality: Good Exam Date: 10/01/2023 8:57 AM Exam Location: Echo Lab Patient Status: Inpatient Admit Date: 09/30/2023 Staff Ordering Physician: Munir Berger MD Parts Counter Associate: Arturo Fan RDCS Attending Provider: Jeanine Dowell PA-C Referring Physician: Ab WHITE; Exam Type: CA echo doppler color flow Study Info Indications - pericardial effusion seen on CT Complete two-dimensional, color flow and Doppler transthoracic echocardiogram is performed. Summary 1. Left ventricular chamber dimension is normal. 2. Left ventricular systolic function is normal, estimated at 65-70%. 3. There is mildly increased left ventricular wall thickness. 4. The left ventricular diastolic function is grade I diastolic dysfunction. 5. Right ventricular systolic function is normal. 6. Left atrial chamber dimension is moderately enlarged. 7. There is mild mitral valve regurgitation. 8. There is mild tricuspid valve regurgitation. 9. Large left pleural effusion noted. 10. Circumferential pericardial effusion. Pericardial effusion is small anteriorly, and moderate posteriorly. Measures up to 1.4cm posteriorly. No echocardiographic evidence of tamponade. Left Ventricle Left ventricular chamber dimension is normal. Left ventricular systolic function is normal, estimated at 65-70%. There is mildly increased left ventricular wall thickness. The left ventricular diastolic function is grade I diastolic dysfunction. Right Ventricle Right ventricular chamber dimension is normal. Right ventricular systolic function is normal. Left Atria Left atrial chamber dimension is moderately enlarged. Right Atria Right atrial chamber dimension is normal. Atrial Septum Intact interatrial septum visualized by color flow imaging. Aortic Valve The aortic valve is probable trileaflet. There is no aortic valve stenosis. There is no aortic valve regurgitation. There is mild aortic valve calcification. Pulmonic Valve The pulmonic valve is not well visualized. Mitral Valve There is mild mitral valve regurgitation. The mitral valve annulus is mildly calcified. Tricuspid Valve There is mild tricuspid valve regurgitation. Pericardium/Pleural Large left pleural effusion noted. Circumferential pericardial effusion. Pericardial effusion is small anteriorly, and moderate posteriorly. Measures up to 1.4cm posteriorly. No echocardiographic evidence of tamponade. Inferior Vena Cava Normal inferior vena cava with <50% collapse upon inspiration consistent with elevated right atrial pressure, 8 mmHg. Aorta The aortic root size at the sinus of Valsalva is normal. Left Ventricular Outflow Tract Name Value Normal LVOT 2D LVOT Diameter 1.8 cm LVOT Doppler LVOT Peak Gradient 7 mmHg LVOT Mean Gradient 4 mmHg LVOT VTI 28 cm LVOT VTI/AV VTI Ratio 0.5 LVOT Stroke Volume 74 ml LVOT CO
[2023-10-01] MEDS: NICOTINE (*PBKC) 14 MG PATCH 1 PATCH TRANSDERM (14:50)
--- NOTE | 2023-10-01 15:04 | PM.IMPN ---
Progress Note: A&P Assessment and Plan (1) Noncompliance with renal dialysis: Code(s): Z91.158 - Patient's noncompliance with renal dialysis for other reason Status: Acute Assessment and Plan: Patient has not been to dialysis since September 11 due to transportation issues. She is usually seen Sunday -significant electrolyte abnormalities on admission with hyperkalemia, hypocalcemia, metabolic gap acidosis and uremia. -Nephrology nephrology following and receiving dialysis today -calcium improving but still low at 7.9 today, she is on calcium acetate 3 times a day with meals and will continue to monitor -continue telemetry -the importance of compliance with dialysis was stressed With HD, electrolyte abnormalites improved. Stop oral bicarb once gap closes (2) Acute hyperkalemia: Code(s): E87.5 - Hyperkalemia Status: Resolved Assessment and Plan: Potassium 6.6 treated appropriately and with Lokelma and HD Resolved and Lokelma discontinued Continue to control potassium with HD (3) Pleural effusion: Code(s): J90 - Pleural effusion, not elsewhere classified Status: Acute Assessment and Plan: Noted on xray -pt has no symptoms or complaints of cough or has hypoxia -repeat x-ray shows continued left pleural effusion CT chest reviewed. Thoracentesis ordered but she is refusing. Mild-moderate pericardial effusion noted and Echo ordered. [place] she has fluid overload related to her noncompliance with HD Follow (4) Asthma with COPD with exacerbation: Code(s): J44.1 - Chronic obstructive pulmonary disease with (acute) exacerbation; J45.901 - Unspecified asthma with (acute) exacerbation Status: Chronic Assessment and Plan: No wheezing on exam today Patient had PRN bronchodilatiors (5) Abnormal urinalysis: Code(s): R82.90 - Unspecified abnormal findings in urine Status: Acute Assessment and Plan: Abnormal UA from nephrostomy tube (has many squamous cells) Unable to determine when this was placed but she has not had it changed since it was placed Urology consulted regarding nephrostomy tube Urine culture growing >100K colonies of Group B strept; others felt this was contaminant/colonization. WBC normal and no fevers. Will follow off abx (6) Anemia: Code(s): D64.9 - Anemia, unspecified Status: Chronic Assessment and Plan: chronic and stable -likely due to ACD, on dialysis -no notable blood loss on hx of exam -monitor with daily labs -received Epo with dialysis (7) Cigarette smoker: Code(s): F17.210 - Nicotine dependence, cigarettes, uncomplicated Status: Chronic Assessment and Plan: nicotine patch ordered daily Plan DVT prophylaxis - Heparin Code status - full code Subjective Date/time seen: 10/01/23 15:04 Interval history: 47yo female with complex past medical history including ESRD on hemodialysis since 2020 due to horseshoe kidney, obstructive uropathy, right nephrostomy tube, anemia of chronic disease and asthma with continued tobacco use who presented to the ER from home via private vehicle due to having missed dialysis since September 11. Assuming care. Chart reviewed. No problems overnight. No CP or SOB. No n/v. She is refusing thoracentesis now. She had it in [place] and does not not think she needs another. They removed fluid and she denies that there was infection or cancer in the fluid. Patient was seen and examined while recieving HD Exam Narrative: AF 97.8 140/73 99 18 100% 2L Gen - NARD lying left side down currently undergoing HD Chest - decreased BS in the left lung field. CV - RRR S1/S2. Tele showing PAC with brief episode of junctional rhythm Abd - Soft, NT/ND, Positive BS Ext - No pedal edema. left UE shunt accessed for HD Psych - Nml mood Skin - Warm and dry Objective Data Vital Signs Vital Signs: Vital Signs - 24 hr
--- NOTE | 2023-10-01 18:23 | PM.DS ---
DS: Admitting Diagnosis Discharge Date 10/01/23 Admitting Diagnosis Missed dialysis DS: Discharge Diagnosis Discharge Diagnosis (1) Noncompliance with renal dialysis: Code(s): Z91.158 - Patient's noncompliance with renal dialysis for other reason Status: Acute (2) Acute hyperkalemia: Code(s): E87.5 - Hyperkalemia Status: Resolved (3) Pleural effusion: Code(s): J90 - Pleural effusion, not elsewhere classified Status: Acute (4) Asthma with COPD with exacerbation: Code(s): J44.1 - Chronic obstructive pulmonary disease with (acute) exacerbation; J45.901 - Unspecified asthma with (acute) exacerbation Status: Chronic (5) Abnormal urinalysis: Code(s): R82.90 - Unspecified abnormal findings in urine Status: Acute (6) Anemia: Code(s): D64.9 - Anemia, unspecified Status: Chronic (7) Cigarette smoker: Code(s): F17.210 - Nicotine dependence, cigarettes, uncomplicated Status: Chronic DS: Summary Hospital Course Reason for hospitalization: 47yo female with complex past medical history including ESRD on hemodialysis since 2020 due to horseshoe kidney, obstructive uropathy, right nephrostomy tube, anemia of chronic disease and asthma with continued tobacco use who presented to the ER from home via private vehicle due to having missed dialysis since September 11. Please see H&P for details Hospital Course: Patient has not been to dialysis since September 11 due to transportation issues. She is usually seen Sunday. On presentation, she had significant electrolyte abnormalities with hyperkalemia, hypocalcemia, metabolic gap acidosis and uremia. Nephrology consulted and were following. She received dialysis. Calcium improving. She was on oral replacement. Potassium 6.6 treated appropriately and with Lokelma and HD. Acute hyperkalemia resolved and Lokelma discontinued. The importance of compliance with dialysis was stressed. Pleural effusion noted on xray but pt has no symptoms or complaints of cough or has hypoxia. She had a CT chest showing a large left and small right pleural effusion, ground glass opacities, pericardial effusion and old healing fractures. It was not felt that she had PNA. Echo ordered with results pending. Abnormal UA from nephrostomy tube. Urology consulted regarding nephrostomy tube. Urine culture growing >100K colonies of Group B strept; others felt this was contaminant/colonization. WBC normal and no fevers. She was monitored off antibiotics. She had dialysis today. She refused the thoracentesis. She signed herself out against medical advise later in the day. Status at Discharge Cognitive/behavioral status at discharge: stable Time Spent with Patient Time attestation: Total time spent providing and/or coordinating discharge services: 32 minutes Time spent: Greater than 30 minutes Exam Narrative: AF 97.8 140/73 99 18 100% 2L Gen - NARD lying left side down currently undergoing HD Chest - decreased BS in the left lung field. CV - RRR S1/S2. Tele showing PAC with brief episode of junctional rhythm Abd - Soft, NT/ND, Positive BS Ext - No pedal edema. left UE shunt accessed for HD Psych - Nml mood Skin - Warm and dry DS: Data Data Completed and Pending Pending studies at discharge: Pending at discharge 09/29/23 03:39 Cytology [PTH] Routine Labs on day of discharge: Labs from last 24 hours 10/01/23 10/01/23 10/01/23 05:46 05:46 05:46 Sodium Potassium Chloride Carbon Dioxide Anion Gap BUN Creatinine Estim Creat Clear Calc Estimated GFR Glucose 76 Calcium 7.9 L 7.9 L Phosphorus 8.6 H Total Bilirubin 0.4 AST 13 L ALT 9 Alkaline Phosphatase 118 Lactate Dehydrogenase 165 Total Protein 6.0 L Albumin 3.5 3.6 Cholesterol 115 10/01/23 10/01/23 10/01/23 05:46 05:46 05:46 Sodium Potassium Chloride C
[2023-10-02 02:34] LABS: Hepatitis B Core Ab Total NON-REACTIVE (NON-REACTIVE)
--- NOTE | 2023-10-05 12:52 | PC.NURSE ---
ECHO results shown to Dr. Desir.
--- NOTE | 2023-10-10 07:56 | PC.NURSE ---
Echo report faxed to Dr. Berger. Dr. Desir aware of ECHO findings.
== END 2023-10-01 17:08 | disposition left against medical advice (07) | DRG 425 ==
LOC: ANHED 16:54 → ANH3MEDSUR 21:07
PROVIDERS: Internal Medicine Nephrology; Physician Assistant; Admitting Provider Internal Medicine; Emergency Provider Emergency Medicine; Visit Provider Internal Medicine
DX: E87.5 Hyperkalemia (principal); N18.6 End stage renal disease; J90 Pleural effusion, not elsewhere classified; D63.8 Anemia in other chronic diseases classified elsewhere; E83.51 Hypocalcemia; J44.1 Chronic obstructive pulmonary disease with (acute) exacerbation; J45.909 Unspecified asthma, uncomplicated; R82.90 Unspecified abnormal findings in urine; F17.210 Nicotine dependence, cigarettes, uncomplicated; Z20.822 Contact with and (suspected) exposure to COVID-19; Z99.2 Dependence on renal dialysis; Z91.158 Patient's noncompliance with renal dialysis for other reason; Z79.82 Long term (current) use of aspirin; Z93.6 Other artificial openings of urinary tract status; I25.2 Old myocardial infarction
CPT/HCPCS: 36415; 71045; 71046; 71250; 80048; 80053; 80069; 81001; 82150; 82465; 82728; 83540; 83550; 83615; 83735; 84478; 85025; 85027; 85610; 86704; 86706; 87077; 87086; 87088; 87340; 87637; 93005; 93306; 94640; 96365; 96372; 96374; 96375; 99285; A9270; G0257; G0378; J0612; J1644; J1815; J2270; J3475; J7030; P9047; Q5105